=== PATIENT | female | born 1975 | race Caucasian/White ===

== ENCOUNTER 2018-01-29 23:40 | Emergency (ER) | payer OTHER ==
[~2018-01-29] VITALS: Ht 154.9 cm; Wt 56.8 kg
[~2018-01-29 23:40] MED LIST: ATEN50TA PO; ENAL10TA PO; IBUP100O27 PO; PRAV10TA2 PO
[2018-01-30] MEDS ORDERED: FOLI1 PO (00:11)
[2018-01-30] MEDS ORDERED: GABA-533 PO (00:11)
[2018-01-30] MEDS ORDERED: PROP20TA18 PO (00:11)
[2018-01-30] MEDS ORDERED: FAMO20 PO (00:11)
[2018-01-30] MEDS ORDERED: MIRT15 PO (00:11)
[2018-01-30 03:10] VITALS: BP 118/80
== END 2018-01-30 03:31 | disposition home or self-care (01) ==
LOC: EMS 23:40
DX: F32.9 Major depressive disorder, single episode, unspecified (principal); I10 Essential (primary) hypertension; E78.00 Pure hypercholesterolemia, unspecified; F17.210 Nicotine dependence, cigarettes, uncomplicated; Z88.1 Allergy status to other antibiotic agents
CPT/HCPCS: 99285